=== PATIENT | female | born 1995 | race Caucasian/White ===

== ENCOUNTER 2024-12-11 17:19 | Emergency (ER) | payer SELFPAY ==
--- NOTE | ~2024-12-11 | XR_ITS ---
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 RESULT: Lines, tubes, and devices: None. Lungs and pleura: Clear. Cardiomediastinal silhouette: Normal. Other: No acute osseous or upper abdominal finding. IMPRESSION: No acute cardiopulmonary process. Reviewed, dictated and finalized at location K. OR ORACLE DEVELOPER
[2024-12-11 17:19] VITALS: BP 118/67; PULSE 85; RESP 22; TEMP 36.6; O2SAT 97
--- NOTE | 2024-12-11 17:34 | ED.URI ---
HPI - URI/Sore Throat General Chief Complaint: Upper Respiratory Infection Stated Complaint: Cough Time Seen by Provider: 12/11/24 17:33 Source: patient Mode of arrival: ambulatory Limitations: no limitations History of Present Illness HPI Narrative: 29-year-old female the history of asthma presents to the ED with a one-week history of -- nonproductive cough. Cough is bovine cough. -- Pain and irritation of her throat and trachea. -- Sore throat -- shortness of breath -- nasal congestion No shortness of breath. No fever or chills. MD elicited complaint: cough, sore throat, rhinorrhea and nasal congestion Pertinent past history: asthma Onset (ago): day(s) ( 7 days) Consistency: constant Severity: mild Able to tolerate fluids by mouth: Yes Exacerbating factors: nothing Relieving factors: nothing Associated symptoms: voice changes, rhinorrhea, nasal congestion, sore throat, cough and shortness of breath Treatments prior to arrival: none Related Data Allergies Allergy/AdvReac Type Severity Reaction Status Date / Time No Known Allergies Allergy Verified 12/11/24 17:48 Review of Systems Review of Systems: All systems reviewed & are unremarkable except as noted in HPI and below PMFSH Past Medical History Medical History (Updated 12/11/24 @ 18:55 by Zack Bills MD) Asthma Exam Narrative: afebrile. oxygen saturation 97% on room Const: Nutritional Appearance: well nourished Orientation/consciousness: patient oriented x3 Limitations: no limitations HENMT: Head: normal to inspection Ears: external ears normal Face/Nose/Sinus: Normal external nose present Face and sinus: normal facial exam Mouth: Yes Normal oral and palatal mucosa present Throat: posterior oropharynx normal Eyes: Conjunctivae: conjunctivae normal Pupils: Equal, round and reactive pupils present EOM: EOMs intact bilaterally Direct Ophthalmoscopy: no photophobia Neck: Neck: normal visual inspection, no lymphadenopathy and no meningeal signs Chest: Chest palpation & inspection: normal inspection of the chest Resp: Effort & Inspection: normal respiratory effort Auscultation: clear to auscultation bilaterally Other: bovine cough. Cardio: Rate: regular rate Rhythm: regular rhythm GI: GI Palp: Yes Soft to palpation Auscultation: normal bowel sounds Other: No tenderness/rigidity /rebound : General: Yes no CVA tenderness Back/Spine/Pelvis: Back: no CVA tenderness Skin: General skin exam: normal color Rashes: no rashes Wounds: no wounds Neuro: General: patient oriented x3, moves all extremities, no meningeal signs, no focal motor deficits and CN's II-XI intact bilaterally Cranial nerves: Yes Nystagmus not present Speech: normal speech Extrem: General: normal to inspection and no clubbing, cyanosis or edema Psych: Mental Status: mental status grossly normal Affect: normal affect Attitude: cooperative Course Course Emergency Course: upper respiratory tract infection-- tested positive for influenza Vital Signs Vital signs: Vital Signs Temperature 36.6 C 12/11/24 17:19 Pulse Rate 85 12/11/24 17:19 Respiratory Rate 22 H 12/11/24 17:19 Blood Pressure 118/67 12/11/24 17:19 Pulse Oximetry 97 12/11/24 17:19 Oxygen Delivery Room Air 12/11/24 17:19 Temperature 36.6 C 12/11/24 17:19 Pulse Rate 85 12/11/24 17:19 Respiratory Rate 22 H 12/11/24 17:19 Blood Pressure 118/67 12/11/24 17:19 Pulse Oximetry 97 12/11/24 17:19 Oxygen Delivery Room Air 12/11/24 17:19 MDM - URI/Sore Throat MDM Narrative Medical decision making narrative: influenza a Differential Diagnosis Differential diagnosis: Likely upper respiratory infection, viral infection and influenza Medical Records Attestation: I reviewed the patient's medical records. Lab Data Attestation: I reviewed the patient's lab results. Labs: Lab Results 12/11/24 12/11/24 Range/Units 17:48 18:19 Influenza A (RT-PCR) Positive A (Negative) Influenza B (RT-PCR) Negative (Negative) RSV (RT-PCR) Negative (Negative) SARS-CoV-2 RNA (RT-PCR) Negative (Negative) Group A Strep (PCR) Not detected (Negative) Discharge Plan Discharge Clinical Impression: Influenza Patient Disposition: Home, Self-Care Condition: Stable Instructions: Antibiotic Form, Influenza (ED) Patient Language: Anguillan Follow-up/Referrals: UNKNOWN,DOCTOR [Primary Care Provider] - Time of Disposition: 18:55
[2024-12-11 18:11] LABS: Influenza A QL RT-PCR Positive (Negative); Influenza B QL RT-PCR Negative (Negative); RSV RNA, RT-PCR Negative (Negative); SARS-CoV-2 RNA PCR Negative (Negative)
[2024-12-11 18:43] LABS: Strep Group A RT-PCR NOT DETECTED (Negative)
[2024-12-11 19:13] VITALS: PULSE 87; RESP 20; TEMP 37.1; O2SAT 99
== END 2024-12-11 19:13 | disposition home or self-care (01) ==
PROVIDERS: Emergency Provider Internal Medicine Critical Care Medicine
DX: J11.1 Influenza due to unidentified influenza virus with other respiratory manifestations (principal); Z20.822 Contact with and (suspected) exposure to COVID-19
CPT/HCPCS: 71045; 87637; 87651; 99283

== ENCOUNTER 2025-03-15 15:04 | Emergency (ER) | payer OTHER, SELFPAY ==
--- NOTE | ~2025-03-15 | XR_ITS ---
XR hip RT min 3V w AP pelvis Ordering provider: Frank Kelly MD History: . Right hip pain, nki . Comparison: None. FINDINGS: BONES: No acute fracture or dislocation. HIP JOINT SPACES: Normal. SACROILIAC JOINT SPACES/LUMBAR SPINE: The sacroiliac joint spaces are normal. Normal visualized lower lumbar spine. PUBIC SYMPHYSIS: Normal. SOFT TISSUES: Normal. IMPRESSION: No acute osseous abnormality pelvis and right hip. Reviewed, dictated and finalized at location A.
[2025-03-15 15:05] VITALS: BP 134/73; PULSE 86; RESP 18; TEMP 36.3; O2SAT 98
--- OUTSIDE RECORDS SUMMARY | 2025-03-15 15:07 | XMS_ITS | Clinical Summary ---
Author Organization [facility] Address [address] [place] [address] Care Team Providers Care Forester Silviculture Name Role Phone Tea Schneider DO, Santiago B Primary Care Provider Source Comments [facility],non-owned Affiliates and Associated Physician Practices is amultiple site organization consisting of ambulatory clinics and hospital sitesin [place] and [place]. This disclosure is being madepursuant to the Care Everywhere program and may not contain all information available regarding this patient. Last updated 18.[facility] Allergies No known active allergies Medications * Be aware that medications may not be up to date on this document. Alwaysverify current medications with the patient. ibuprofen (MOTRIN) 400 MG tablet Take 600 mg by mouth every 6 hours as needed. Active Other Active amphetamine-de xtroamphetamin e XR 24hr (ADDERALL XR) 30 MG capsule Active naproxen (NAPROSYN) 500 MG tablet Take 1 (one) tablet by mouth 2 times daily 60 tablet 2 Active acetaminophen (TYLENOL) 500 MG tablet Take 2 (two) tablets by mouth every 6 hours as needed for Pain Maximum allowable Acetaminophen amount = 4 Grams (4000 mg) / 24 hours. 60 tablet 2 Active cyclobenzaprin e (FLEXERIL) 10 MG tablet Take 1 (one) tablet by mouth 3 times daily as needed for Muscle Spasms 30 tablet 2 Active Active Problems Problem Noted Date Diagnosed Date Injury, other and unspecified, shoulder and uppe r arm 11/07/2010 Immunizations Immunization Administration Dates Next Due HEP A VACCINE, ADULT 12/08/2017 Social History Tobacco Use Types Packs/Day Years Used Date Smoking Tobacco: Never Assessed Comments Unknown Sex and Gender Information Value Date Recorded Sex Assigned at Not on file Legal Sex Female 6:05 AM SLASHER Gender Identity Not on file Sexual Orientation Not on file Last Filed Vital Signs Vital Sign Reading Time Taken Comments Blood Pressure 134/76 12/29/2021 11:09 PM SLASHER Pulse 96 12/29/2021 11:09 PM SLASHER Temperature 36.6 C (97.8 F) 12/29/2021 11:09 PM SLASHER Respiratory Rate 18 12/29/2021 11:09 PM SLASHER Oxygen Saturation 99% 12/29/2021 11:09 PM SLASHER Inhaled Oxygen Concentration - - Weight 127 kg (280 lb) 12/29/2021 7:58 PM SLASHER Height 154.9 cm (5' 1 ) 12/29/2021 7:58 PM SLASHER Body Mass Index 52.91 12/29/2021 7:58 PM SLASHER Plan of Treatment Health Maintenance Due Date Last Done Comments HIV SCREENING 2012 HEPATITIS C SCREENING 10/10/2015 DTAP/TDAP/TD VACCINES (1 - Tdap) 2016 HEPATITIS B VACCINE (1 of 3 - 19+ 3-dose series) 2016 HEPATITIS A VACCINE (2 of 2 - Risk 2-dose series) 06/07/2018 12/08/2017 COVID-19 VACCINE (3 - 2023-2 5 season) 2024 09/22/2021, 02/10/2021 DEPRESSION SCREENING 11/08/2024 INFLUENZA VACCINE (Season Ended) 2025 07/25/2014, 09/14/2013 ZOSTER VACCINE (1 of 2) 2047 HIB VACCINE Aged Out No longer eligi ble based on patient's age to complete this topic HPV VACCINE Aged Out No longer eligi ble based on patient's age to complete this topic MENINGOCOCCAL (Group B) VACCINE SHARED DECISION-MAKING Aged Out No longer eligible based on patient's age to complete this topic MENINGOCOCCAL GROUPS A/C/Y/W VACCINE Aged Out No longer eligible b ased on patient's age to complete this topic PNEUMOCOCCAL VACCINE Aged Out No long er eligible based on patient's age to complete this topic Care Teams Forester Silviculture Relationship Specialty Start Date End Date Rayray Metcalf Jr., DO PCP - General 01/16/22
--- OUTSIDE RECORDS SUMMARY | 2025-03-15 15:07 | XMS_ITS | Referral Summary ---
Author Organization [facility] Address [address] [place] [id number] Care Team Providers Care Lubricating Machine Tender Name Role Phone Miscellaneous, Not In File Primary Care Provider Unavailable Allergies No known active allergies Medications ibuprofen (ADVIL,MOTRIN) 800 mg tablet Take 1 tablet (800 mg total) by mouth 3 (three) times a day Take with food. 30 tablet 02/03/2022 Active loratadine (CLARITIN) 10 mg tablet Take 1 tablet (10 mg total) by mouth daily 30 tablet 03/30/2023 Active Active Problems Problem Noted Date Diagnosed Date Viral syndrome 05/29/2021 Clinical diagnosis of COVID-19 05/29/2021 Acute tonsillitis 05/29/2021 Acute cystitis with hematuria 05/29/2021 Social History Tobacco Use Types Packs/Day Years Used Date Smoking Tobacco: Never Alcohol Use Standard Drinks/Week Comments Yes 0 (1 standard drink = 0.6 oz pur e alcohol) Personal Safety Answer Date Recorded Getting School Help Needed Not on file 11/07 Comments No Sex and Gender Information Value Date Recorded Sex Assigned at Not on file 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 Gender Identity Not on file Sexual Orientation Not on file Last Filed Vital Signs Vital Sign Reading Time Taken Comments Blood Pressure 91/71 03/30/2023 9:00 AM CDT Pulse 69 03/30/2023 10:30 AM CDT Temperature 36.5 C (97.7 F) 03/30/2023 6:48 AM CDT Respiratory Rate 21 03/30/2023 10:30 AM CDT Oxygen Saturation 96% 03/30/2023 10:30 AM CDT Inhaled Oxygen Concentration - - Weight 127 kg (280 lb) 03/30/2023 6:46 AM CDT Height 154.9 cm (5' 1 ) 03/30/2023 6:46 AM CDT Body Mass Index 52.91 03/30/2023 6:46 AM CDT Plan of Treatment Not on file Care Teams Lubricating Machine Tender Relationship Specialty Start Date End Date Miscellaneous, Not In File PCP - General 05/29/21
--- OUTSIDE RECORDS SUMMARY | 2025-03-15 15:07 | XMS_ITS | Clinical Summary ---
Author Organization 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 Gender Identity Not on file Sexual Orientation Not on file Obstetrics History Last Filed Vital Signs Vital Sign Reading [...] 03/30/2023 6:46 AM CDT Plan of Treatment Health Maintenance Due Date Last Done Comments Cervical Cancer Screening 1997 Depression Screening 1997 Hepatitis C Screening 1997 DTaP/Tdap/Td Vaccine (1 - Tdap) 2008 HPV Vaccines (2 - 3-dose series) 02/20/2014 01/23/2014 Varicella Vaccines (1 of 2 - 13+ 2-dose series) 08/22/2014 Hepatitis B Screening 2015 Regular Well Visit/Exam 18-64 2015 Influenza Vaccine (#1) 2024 4, 09/14/2013 Pneumococcal vaccine <65 Aged Out No longer eligible based on patient's age to complete this topic Care Teams House Principal Relationship Specialty Start Date End Date Miscellaneous, Not In File PCP - General 05/29/21
[2025-03-15 15:35] LABS: Pregnancy On Board Control Positive; Urine Pregnancy Test Negative
[2025-03-15] MEDS: KETOROLAC (*BKC) 60 MG/2 ML VIAL IM (15:39)
--- NOTE | 2025-03-15 16:12 | ED.BACK ---
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 MD elicited complaint: other ( Right hip pain) Onset (ago): day(s) Timing: constant Severity: moderate Related Data Allergies Allergy/AdvReac Type Severity Reaction Status Date / Time No Known Allergies Allergy Verified 03/15/25 15:05 Review of Systems Review of Systems: All systems reviewed & are unremarkable except as noted in HPI and below PMFSH Past Medical History Medical History Asthma Exam Const: General: healthy appearing Nutritional Appearance: well nourished Orientation/consciousness: patient oriented x3 Limitations: no limitations Eyes: Conjunctivae: conjunctivae normal Neck: Neck: normal visual inspection Chest: Chest palpation & inspection: normal inspection of the chest Resp: Auscultation: clear to auscultation bilaterally Cardio: Rate: regular rate Rhythm: regular rhythm GI: GI Palp: Yes Soft to palpation Auscultation: normal bowel sounds Urinary Catheter: Urinary Catheter: patent and draining Back/Spine/Pelvis: Back: no CVA tenderness Skin: Rashes: no rashes Neuro: General: patient oriented x3, moves all extremities, no meningeal signs and no focal motor deficits Extrem: Other: Right hip pain with movement and palpation Course Course Emergency Course: x-rays performed show no acute fractures patient received 60mg IM Toradol and after reassessment patient's pain was improved. Vital Signs Vital signs: Vital Signs Temperature 36.3 C L 03/15/25 15:05 Pulse Rate 86 03/15/25 15:05 Respiratory Rate 18 03/15/25 15:05 Blood Pressure 134/73 03/15/25 15:05 Pulse Oximetry 98 03/15/25 15:05 Oxygen Delivery Room Air 03/15/25 15:05 Temperature 36.3 C L 03/15/25 15:05 Pulse Rate 86 03/15/25 15:05 Respiratory Rate 18 03/15/25 15:05 Blood Pressure 134/73 03/15/25 15:05 Pulse Oximetry 98 03/15/25 15:05 Oxygen Delivery Room Air 03/15/25 15:05 MDM - Back Pain/Injury Lab Data Labs: Lab Results 03/15/25 Range/Units 15:20 Urine Test Negative Critical Care Time Critical Care Time Critical Care Time: No Discharge Plan Discharge Clinical Impression: Strain of hip and thigh Patient Disposition: Home Condition: Stable Instructions: Antibiotic Form, Hip Sprain (ED) Additional Instructions: patient advised take medication as needed and to follow with primary care physician if symptoms persist or worsen. Patient Language: [place] Islander Prescriptions: New naproxen 500 mg tablet 500 mg PO BID PRN (Reason: pain) Qty: 14 0RF Follow-up/Referrals: UNKNOWN,DOCTOR [Primary Care Provider] - Time of Disposition: 16:16
--- OUTSIDE RECORDS SUMMARY | 2025-03-15 16:16 | XMS_ITS | Referral Summary ---
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
--- OUTSIDE RECORDS SUMMARY | 2025-03-15 16:16 | XMS_ITS | Clinical Summary ---
Author Organization [facility] Address [address] [place] [id number] Care Team Providers Care Art Objects Repairer Name Role Phone Miscellaneous, Not In File [...] on file Legal Sex Female 7:30 AM CORPORATE STRATEGY ASSOCIATE Gender Identity Not on file Sexual Orientation [...] age to complete this topic Care Teams Art Objects Repairer Relationship Specialty Start Date End Date Miscellaneous, Not In File PCP - General 05/29/21
--- OUTSIDE RECORDS SUMMARY | 2025-03-15 16:16 | XMS_ITS | Clinical Summary ---
Author Organization [facility] Address [address] [place] [address] Care Team Providers Care Manager Chemistry Name Role Phone Tea Schneider DO, Santiago B Primary Care Provider Source Comments [facility],non-owned Affiliates and Associated Physician Practices is amultiple site organization consisting of ambulatory clinics and hospital sitesin [place], [place], [place] and [place]. This disclosure is being madepursuant to the Care Everywhere program and may not contain all information available regarding this patient. Last updated 18.[facility] Allergies No known active allergies Medications * [...] on file Legal Sex Female 6:05 AM LEAD RADIATION THERAPIST Gender Identity Not on file Sexual Orientation Not on file Last Filed Vital Signs Vital Sign Reading Time Taken Comments Blood Pressure 134/76 12/29/2021 11:09 PM LEAD RADIATION THERAPIST Pulse 96 12/29/2021 11:09 PM LEAD RADIATION THERAPIST Temperature 36.6 C (97.8 F) 12/29/2021 11:09 PM LEAD RADIATION THERAPIST Respiratory Rate 18 12/29/2021 11:09 PM LEAD RADIATION THERAPIST Oxygen Saturation 99% 12/29/2021 11:09 PM LEAD RADIATION THERAPIST Inhaled Oxygen Concentration - - Weight 127 kg (280 lb) 12/29/2021 7:58 PM LEAD RADIATION THERAPIST Height 154.9 cm (5' 1 ) 12/29/2021 7:58 PM LEAD RADIATION THERAPIST Body Mass Index 52.91 12/29/2021 7:58 PM LEAD RADIATION THERAPIST Plan of Treatment Health Maintenance Due Date [...] age to complete this topic Care Teams Manager Chemistry Relationship Specialty Start Date End Date Rayray Metcalf Jr., DO PCP - General 01/16/22
[2025-03-15 16:25] VITALS: BP 130/77; PULSE 89; RESP 18; O2SAT 98
== END 2025-03-15 16:25 | disposition home or self-care (01) ==
PROVIDERS: Emergency Provider Emergency Medicine
DX: S76.011A Strain of muscle, fascia and tendon of right hip, initial encounter (principal); J45.909 Unspecified asthma, uncomplicated; X58.XXXA Exposure to other specified factors, initial encounter
CPT/HCPCS: 73502; 81025; 96372; 99283; J1885

== ENCOUNTER 2025-08-29 18:26 | Emergency (ER) | payer OTHER, SELFPAY ==
--- NOTE | ~2025-08-29 | XR_ITS ---
XR foot RT min 3V INDICATION: pain . COMPARISON: None. FINDINGS: Frontal, lateral and oblique views of the right foot were obtained. There is no acute fracture or dislocation. IMPRESSION: Radiographic examination of the right foot demonstrates no acute fracture or dislocation. Reviewed, dictated and finalized at location S. IMPRESSION: Radiographic examination of the right foot demonstrates no acute fracture or di slocation.
[2025-08-29 18:28] VITALS: BP 144/89; PULSE 81; RESP 16; TEMP 36.8; O2SAT 99
--- NOTE | 2025-08-29 18:38 | ED.EXTPRO ---
HPI - Extremity Problem General Chief complaint: Extremity Problem,Nontraumatic Stated complaint: rt. foot pain Time Seen by Provider: 08/29/25 18:34 Source: patient Mode of arrival: ambulatory Limitations: no limitations History of Present Illness HPI Narrative: 29 year old female presents to the Emergency Department complaining of right foot pain. Onset 3 days ago. Denies any trauma. Patient states she was just walking around and it began to hurt. Pain to dorsal aspect of foot, primarily laterally, with some swelling and bruising. MD Complaint: extremity pain Onset (ago): day(s) (3) Location: right and lower extremity (foot) Relieving factors: nothing Exacerbating factors: weight bearing, walking and palpation Related Data Home Medications ?Medication ?Instructions ?Recorded ?Confirmed ?Last Taken ?Type propranolol 20 mg tablet mg 08/29/25 08/29/25 History sertraline 50 mg tablet mg 08/29/25 08/29/25 History Allergies Allergy/AdvReac Type Severity Reaction Status Date / Time No Known Allergies Allergy Verified 08/29/25 18:30 Review of Systems Review of Systems: All systems reviewed & are unremarkable except as noted in HPI and below Constitutional: Constitutional: Reports as per HPI Eyes: Eyes: Reports as per HPI ENT: Reports as per HPI Cardiovascular: Cardiovascular: Reports as per HPI Respiratory: Respiratory: Reports as per HPI Gastrointestinal: Gastrointestinal: Reports as per HPI Genitourinary: Genitourinary: Reports as per HPI Musculoskeletal: Musculoskeletal: Reports no additional musculoskeletal complaints Comments: right foot pain Integumentary/Breasts: Skin/Breast: Reports as per HPI Neurologic: Reports as per HPI and Denies numbness Psychiatric: Psychiatric: Reports as per HPI Endocrine: Endocrine: Reports as per HPI Hematologic/Lymphatic: Hematologic/Lymphatic: Reports as per HPI Allergic/Immunologic: Allergic/Immunologic: Reports as per HPI [facility] Past Medical History Medical History Asthma Exam Const: General: healthy appearing Nutritional Appearance: obese Orientation/consciousness: patient oriented x3 Limitations: no limitations HENMT: Head: normal to inspection Ears: external ears normal Face/Nose/Sinus: Normal external nose present Face and sinus: normal facial exam Eyes: Pupils: Equal, round and reactive pupils present EOM: EOMs intact bilaterally Direct Ophthalmoscopy: no photophobia Neck: Neck: normal visual inspection Chest: Chest palpation & inspection: normal inspection of the chest Resp: Effort & Inspection: normal respiratory effort Cardio: Rate: regular rate Other: pulses intact GI: Inspection: non-distended Skin: General skin exam: normal color Rashes: no rashes Other: slight contusion to proximal dorsal lateral aspect right foot Neuro: General: patient oriented x3 Other: grossly normal Extrem: Other: slight contusion and swelling to proximal dorsal lateral aspect of right foot. Tender to palpation dorsal aspect (lateral > medial). NV intact. Course Course Emergency Course: 29 y/o female presents to the ED c/o atraumatic R foot pain. Onset 3 days ago. PE: mild contusion and swelling to proximal dorsal lateral aspect R foot with tenderness across metatarsals, NV intact XR R Foot: no acute findings *reviewed and discussed results with patient and her mother. Discussed further management. Patient voices understanding and agreement. Vital Signs Vital signs: Vital Signs Temperature 36.8 C 08/29/25 18:28 Pulse Rate 81 08/29/25 18:28 Respiratory Rate 16 08/29/25 18:28 Blood Pressure 144/89 H 08/29/25 18:28 Pulse Oximetry 99 08/29/25 18:28 Oxygen Delivery Room Air 08/29/25 18:28 Temperature 36.8 C 08/29/25 18:28 Pulse Rate 81 08/29/25 18:28 Respiratory Rate 16 08/29/25 18:28 Blood Pressure 144/89 H 08/29/25 18:28 Pulse Oximetry 99 08/29/25 18:28 Oxygen Delivery Room Air 08/29/25 18:28 Discharge Plan Discharge Clinical Impression: Contusion of right foot Patient Disposition: Home Condition: Stable Instructions: Foot Contusion (ED) Additional Instructions: Weight bearing as tolerated Elevate for swelling Tylenol, Ibuprofen and Aleve as needed Follow up Primary Care Provider Patient Language: Telugu Prescriptions: No Action propranolol 20 mg tablet sertraline 50 mg tablet naproxen 500 mg tablet 500 mg PO BID PRN (Reason: pain) Qty: 14 0RF Follow-up/Referrals: UNKNOWN,DOCTOR [Non-Staff] Time of Disposition: 19:02
--- NOTE | 2025-08-29 18:57 | PC.NURSE ---
Handoff report given to FOREST Velázquez.
--- OUTSIDE RECORDS SUMMARY | 2025-08-29 20:29 | XMS_ITS | Clinical Summary ---
Author Organization [facility] Address [address] [place] [address] Care Team Providers Care Automat Car Attendant Name Role Phone Tea Schneider DO, Santiago B Primary Care Provider Source Comments [facility],non-owned Affiliates and Associated Physician Practices is amultiple site organization consisting of ambulatory clinics and hospital sitesin [place], [place], [place] and [place]. This disclosure is being madepursuant to the Care Everywhere program and may not contain all information available regarding this patient. Last updated 18.[facility] Allergies No known active allergies [...] on file Legal Sex Female 6:05 AM SONAR TECHNICIAN Gender Identity Not on file Sexual Orientation Not on file Last Filed Vital Signs Vital Sign Reading Time Taken Comments Blood Pressure 134/76 12/29/2021 11:09 PM SONAR TECHNICIAN Pulse 96 12/29/2021 11:09 PM SONAR TECHNICIAN Temperature 36.6 C (97.8 F) 12/29/2021 11:09 PM SONAR TECHNICIAN Respiratory Rate 18 12/29/2021 11:09 PM SONAR TECHNICIAN Oxygen Saturation 99% 12/29/2021 11:09 PM SONAR TECHNICIAN Inhaled Oxygen Concentration - - Weight 127 kg (280 lb) 12/29/2021 7:58 PM SONAR TECHNICIAN Height 154.9 cm (5' 1) 12/29/2021 7:58 PM SONAR TECHNICIAN Body Mass Index 52.91 12/29/2021 7:58 PM SONAR TECHNICIAN Plan of Treatment Health Maintenance Due Date Last Done Comments HIV SCREENING 2012 HEPATITIS C SCREENING 10/10/2015 DTAP/TDAP/TD VACCINES (1 - Tdap) 2016 HEPATITIS B VACCINE (1 of 3 - 19+ 3-dose series) 2016 HEPATITIS A VACCINE (2 of 2 - Risk 2-dose series) 06/07/2018 12/08/2017 HPV VACCINE (1 - 3-dose SCDM series) 2024 DEPRESSION SCREENING 11/08/2024 COVID-19 VACCINE (3 - 2024-2 6 season) 2025 09/22/2021, 02/10/2021 INFLUENZA VACCINE (#1) 2025 4, 09/14/2013 ZOSTER VACCINE (1 of 2) 2047 [...] age to complete this topic Care Teams Automat Car Attendant Relationship Specialty Start Date End Date Rayray Metcalf Jr., DO PCP - General 01/16/22
--- OUTSIDE RECORDS SUMMARY | 2025-08-29 20:29 | XMS_ITS | Clinical Summary ---
Author Organization [facility] Address [address] [place] [address] Care Team Providers Care District Representative Name Role Phone Almita Snowden Primary Care Provider [phone] Social History Tobacco Use Types Packs/Day Years Used Date Smoking Tobacco: Never Assessed Comments Unknown Sex and Gender Information Value Date Recorded Sex Assigned at Female 03/21/2025 10:20 AM CDT Legal Sex Female 10:15 AM CDT Gender Identity Not on file Sexual Orientation Not on file Plan of Treatment Health Maintenance Due Date Last Done Comments Cervical Cancer Screening Pa p Smear (Age 21 to 29) Every 3 Years 1997 Cervical Cancer Screening 1997 Annual Physical 2000 Hepatitis C 2015 DTaP, Tdap and Td Vaccines ( 1 - Tdap) 2016 Hepatitis B Vaccines (1 of 3 - 19+ 3-dose series) 2016 HPV Vaccines (1 - 3-dose SCD M series) 2024 COVID-19 Vaccine ( - 2023-2 5 season) 2025 Influenza Adult (#1) 2025 Hepatitis A Vaccines Aged Out No long er eligible based on patient's age to complete this topic Meningococcal B Vaccine Aged Out No l onger eligible based on patient's age to complete this topic Meningococcal Vaccine Aged Out No willie jacqui eligible based on patient's age to complete this topic Pneumococcal Vaccine: Pediat rics (0 to 5 Years) and At-Risk Patients (6 to 49 Years) Aged Out No longer eligible b ased on patient's age to complete this topic RSV Immunizations Under 20 Months Aged Out No longer eligible based on patient's age to complete this topic Insurance [employer] Care Teams District Representative Relationship Specialty Start Date End Date Almita Snowden PA [address] [place] [address] PCP - General PHYSICIAN PUMPER HAND 03/21/25
--- OUTSIDE RECORDS SUMMARY | 2025-08-29 20:29 | XMS_ITS | Clinical Summary ---
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 Gender Identity Not on file Sexual Orientation [...] 6:46 AM CDT Height 154.9 cm (5' 1) 03/30/2023 6:46 AM CDT Body Mass Index 52.91 03/30/2023 6:46 AM CDT Plan of Treatment Health Maintenance Due Date Last Done Comments Cervical Cancer Screening 1997 Depression Screening 1997 Hepatitis C Screening 1997 DTaP/Tdap/Td Vaccine (1 - Tdap) 2008 Varicella Vaccines (1 of 2 - 13+ 2-dose series) 2010 HPV Vaccines (2 - 3-dose series) 02/20/2014 01/23/2014 Hepatitis B Screening 2015 Regular Well Visit/Exam 18-64 2015 Influenza Vaccine (#1) 2025 4, 09/14/2013 Pneumococcal vaccine <65 Aged Out No longer eligible based on patient's age to complete this topic Care Teams Web Content Coordinator Relationship Specialty Start Date End Date Miscellaneous, Not In File PCP - General 05/29/21
== END 2025-08-29 19:08 | disposition home or self-care (01) ==
PROVIDERS: Emergency Provider Emergency Medicine; PCP Nurse Practitioner Family
DX: S90.31XA Contusion of right foot, initial encounter (principal); Z79.899 Other long term (current) drug therapy; X58.XXXA Exposure to other specified factors, initial encounter
CPT/HCPCS: 73630; 99283